=== PATIENT | female | born 1985 | race Two or more races ===

== ENCOUNTER 2020-09-19 14:58 | Outpatient (REF) | payer OTHER, SELFPAY ==
[2020-09-19 17:26] LABS: Syphilis Screen Nonreactive (Nonreactive)
[2020-09-20 12:26] LABS: BV Int Neg Control Negative (Negative); BV Int Pos Control Positive (Positive)
[2020-09-20 15:37] LABS: C. trachomatis RNA TMA NOT DETECTED (NOT DETECTED); N. gonorrhoeae RNA TMA DETECTED (NOT DETECTED)
[2020-09-22 08:23] LABS: HIV AB/AG Nonreactive (Nonreactive); HIV Num 1 0.06 S/CO (0.00-0.99)
[2020-09-22 09:07] LABS: HBc Num1 0.09 S/CO (0.00-0.79); Hepatitis B Core Antibody Nonreactive (Nonreactive); ~HepC Num1 0.09 S/CO (0.00-0.79); ~Hepatitis C Antibody Nonreactive (Nonreactive)
== END 2020-09-19 14:59 | disposition home or self-care (01) ==
LOC: HO.LAB 14:58
PROVIDERS: PCP Internal Medicine; Visit Provider Advanced Practice Midwife
DX: Z20.2 Contact with and (suspected) exposure to infections with a predominantly sexual mode of transmission (principal)
CPT/HCPCS: 36415; 86704; 86780; 86803; 87389; 87480; 87491; 87510; 87591; 87660; 99212

== ENCOUNTER → 2020-10-03 12:46 | Outpatient (BNVA) | payer OTHER, SELFPAY | PROVIDERS: PCP Internal Medicine; Visit Provider Advanced Practice Midwife | DX: A54.9 Gonococcal infection, unspecified (principal) | CPT/HCPCS: 96372; J0696 ==

== ENCOUNTER 2021-04-13 14:13 | Outpatient (REF) | payer OTHER, SELFPAY ==
--- NOTE | ~2021-04-13 | XR_ITS ---
EXAMINATION: XR SACROILIAC JOINTS CLINICAL INFORMATION: Sacrococcygeal disorder is. COMPARISON: None TECHNIQUE: 3 views of the sacroiliac joints FINDINGS: Bones and soft tissues are normal. No fracture. Alignment is anatomic. Sacroiliac joint spaces are well-maintained without erosions or surrounding sclerosis. XR/XR sacroiliac joint min 3V IMPRESSION: Unremarkable SI joints. Unremarkable sacrum.
== END 2021-04-13 14:14 | disposition home or self-care (01) ==
LOC: HO.XRAY 14:13
PROVIDERS: PCP Internal Medicine; Visit Provider Internal Medicine
DX: M53.3 Sacrococcygeal disorders, not elsewhere classified (principal)
CPT/HCPCS: 72202

== ENCOUNTER 2021-05-19 07:00 | Outpatient (RCR) | payer OTHER, SELFPAY | END 2021-09-21 09:41 | disposition home or self-care (01) | LOC: HO.PTWFD 07:00 | PROVIDERS: PCP Internal Medicine; Visit Provider Internal Medicine | DX: M53.3 Sacrococcygeal disorders, not elsewhere classified (principal) | CPT/HCPCS: 97110; 97140; 97162; 97535 ==

== ENCOUNTER 2021-12-02 15:14 | Outpatient (REF) | payer OTHER, SELFPAY ==
--- NOTE | ~2021-12-02 | XR_ITS ---
EXAMINATION: XR THORACIC SPINE CLINICAL INFORMATION: Dorsalgia. COMPARISON: Radiographs dated 01/02/2015. TECHNIQUE: AP, lateral and swimmer's views of the thoracic spine were obtained. FINDINGS: There is no fracture or bone destruction seen and the vertebral alignment is normal. There is no disc space narrowing. There is no abnormality of the paraspinal soft tissues. XR/XR lumbar spine 2-3V IMPRESSION: Unremarkable examination. EXAMINATION: XR LUMBOSACRAL SPINE CLINICAL INFORMATION: Back pain. COMPARISON: Radiographs dated 12/13/2014. TECHNIQUE: Three views of the lumbosacral spine. FINDINGS: The vertebral bodies and posterior elements are normal. The disc spaces are preserved, and the vertebral alignment is normal. There is very mild anterior spondylosis of the L3 upper and lower endplates. The paraspinal soft tissues are normal. IMPRESSION: 1. No acute fracture or spondylolisthesis is seen. 2. The lumbar disc spaces are well-maintained. 3. There is very mild anterior spondylosis of the L3 upper and lower endplates.
--- NOTE | ~2021-12-02 | XR_ITS ---
EXAMINATION: XR THORACIC SPINE CLINICAL INFORMATION: Dorsalgia. COMPARISON: Radiographs dated 01/02/2015. TECHNIQUE: AP, lateral and swimmer's views of the thoracic spine were obtained. FINDINGS: There is no fracture or bone destruction seen and the vertebral alignment is normal. There is no disc space narrowing. There is no abnormality of the paraspinal soft tissues. XR/XR thoracic spine 3V IMPRESSION: Unremarkable examination. EXAMINATION: XR LUMBOSACRAL SPINE CLINICAL INFORMATION: Back pain. COMPARISON: Radiographs dated 12/13/2014. TECHNIQUE: Three views of the lumbosacral spine. FINDINGS: The vertebral bodies and posterior elements are normal. The disc spaces are preserved, and the vertebral alignment is normal. There is very mild anterior spondylosis of the L3 upper and lower endplates. The paraspinal soft tissues are normal. IMPRESSION: 1. No acute fracture or spondylolisthesis is seen. 2. The lumbar disc spaces are well-maintained. 3. There is very mild anterior spondylosis of the L3 upper and lower endplates.
== END 2021-12-02 15:15 | disposition home or self-care (01) ==
LOC: HO.XRAY 15:14
PROVIDERS: PCP Internal Medicine; Visit Provider Nurse Practitioner Family
DX: M54.9 Dorsalgia, unspecified (principal); M25.562 Pain in left knee
CPT/HCPCS: 72072; 72100

== ENCOUNTER 2021-12-30 09:00 | Outpatient (RCR) | payer OTHER, SELFPAY ==
--- NOTE | 2021-12-25 11:38 | MHC.PT.EP ---
[facility] [place] Office [place] Office [place] Office [address] Enrico Mariano [address] [phone] F: [phone] F: [phone] F: [phone] F: [phone] Physical Therapy Plan of Care Date of Evaluation: Date of Surgery: Diagnosis: This is a 36 yo female presenting to skilled PT with a script for dorsalgia Assessment: This is a 36 yo female presenting to skilled PT with a script for dorsalgia. Pain stated after she reported a fall last year when a lawn chair collapsed. She went to PT but could not do more than 2-3 sessions due to work, pain started to get worse again. She was also referred pain management and has an appointment next week. Pain is located centralized lumbar region and into sacrum. There is no position that relieves this but she does feel better with movement. Denies leg symptoms, changes to bowel or bladder or radiating symptoms. The last time she had PT was about a year ago. Patient reports that she also has upper back pain that is chronic (had PT that was helpful). Assessment reveals pain that ranges up to a 10/10. She demos decreased lumbar and hip ROM, decreased core, hip and back strength, impaired joint mobility, s/s consistent with some SIJ involvement from the fall as well as gross functional decline with sitting and laying on her back. I educated her on x-ray results and treatment for SIJ and lumbar spondylosis at this time. She is a good candidate for skilled PT 2x/wk for 5wks. Frequency and Duration: The patient will be seen 2x/wk for 5wks Short Term Goals: I in HEP Tolerate sleeping on her L side without waking from pain Demo proper core stab, proper hip hinge and squat techniques without cues from PT [facility] Goals: Demos functional ROM and strength Improve oswestry by at least 10 points Improve pain at the worst to no more than 2/10 Demo proper lifting techniques without increase in pain or radiating symptoms Treatment Plan: Modalities to reduce pain, spasms and effusion. Manual therapy to restore motion and function. Therapeutic exercise to improve strength and flexibility. Neuromuscular re-education for posture and balance. Therapeutic activities to return to functional activities of daily living. Electronically signed by: Miriam Cole PT Please sign and return to therapist. Thank you for your referral.
--- NOTE | 2022-01-28 07:51 | MHC.PT.DC ---
[facility] [place] Office [place] Office [place] Office [address] Enrico Mariano [address] [phone] F: [phone] F: [phone] F: [phone] F: [phone] Physical Therapy Discharge Report Diagnosis: This is a 36 yo female presenting to skilled PT with a script for dorsalgia Date of Surgery: Date of Evaluation: 12/25/21 Date of Discharge: 01/28/22 Treatments to Date: 2 Cancellations to Date: 0 No Shows to Date: 0 Discharge Status: Patient Elected to Stop Visit Non-compliance Discharge Summary: Pedro came to eval and one follow up. At the follow up she did not have any increase in pain throughout the session. I updated her HEP accordingly. She appeared equal in ASIS and LL today so held manual. She was 15 mins late to that session and I planned to progress to wall squats, glut med work in standing however patient had a family emergercy and cancelled the next two appointments. The javascript front end developer attempted to call her and left her a message about her appointments and did not hear back. I kept her chart open for 30 days and then DC'd to HEP. Electronically signed by: Miriam Cole PT Please sign and return to therapist. Thank you for your referral.
== END 2022-01-28 07:51 | disposition home or self-care (01) ==
LOC: HO.PTCHIC 09:00
PROVIDERS: PCP Internal Medicine; Visit Provider Nurse Practitioner Family
DX: M54.9 Dorsalgia, unspecified (principal)
CPT/HCPCS: 97110; 97161

== ENCOUNTER → 2022-01-08 09:03 | Outpatient (BNVA) | payer OTHER, SELFPAY | PROVIDERS: PCP Internal Medicine; Visit Provider Nurse Practitioner Family | DX: M62.838 Other muscle spasm (principal); M53.3 Sacrococcygeal disorders, not elsewhere classified; M47.816 Spondylosis without myelopathy or radiculopathy, lumbar region | CPT/HCPCS: 99202 ==

== ENCOUNTER 2024-09-12 13:55 | Outpatient (AMB) | payer OTHER, SELFPAY ==
--- NOTE | 2024-09-12 13:59 | MHC.PC.OV ---
Vital Signs 09/12/24 14:00 Height 5 ft 5 in Weight 246 lb BMI 40.9 BP 110/78 Blood Pressure Location Lt brachial Position Sitting Intake Visit Reasons: annual exam Intake Note: Patient here for a physical exam Head Of [employer] Required: No Accompanied by: Self / Same As Patient Allergies No Known Allergies Allergy (Verified 09/12/24 14:08) Medication List - Last Reconciled 09/12/24 by Laurie Claire MD cyclobenzaprine 10 mg PO BEDTIME PRN 30 days fluocinonide 0.05% 1 appl topical BID 14 days Tobacco use date assessed: 09/12/24 Dental Screening Dental Screen Date: 09/12/24 Did you have a dental visit in the last 12 months?: No Did you have a dental problem in the last 6 months where you did not have access to dental care?: No Was dental information given to patient?: Patient has dentist HPI HPI Comments History of Present Illness Details This is a 39-year-old female that comes for her physical exam. Will order mammogram that has never been done. Pap smear was about 4 years ago and it was normal. Colonoscopy done 2014 due to family history of colon polyps and I will refer her to Gastroenterology for evaluation for colonoscopy. She is morbidly obese with a BMI of 40.9 and has tried diet and exercise with no significant improvement. I will start her on Zepbound if insurance approves. She also complains of sore throat that started yesterday with no fever or cough. Strep test was positive. Will send antibiotics. She has mild depression with a PHQ-9 of 3 and is able to control it by herself with no need for medication or counseling. She declines bariatric surgery for her morbid obesity. [facility] Medical History (Updated 09/12/24 @ 14:36 by Laurie Claire MD) Physical exam EDENILSON (generalized anxiety disorder) Mild depression Eczema Coccyalgia Body mass index [BMI] 38.0-38.9, adult Gonorrhea Migraines Eczema Tachycardia [facility] History History of endometrial ablation Hx of tubal ligation Hx of dilation and curettage Family History Father Hypertension Mother Colon polyps Social History Housing: Apartment Alcohol intake: current Alcohol intake frequency: a few times a week Alcohol type: wine Patient Tobacco Use Status: Never used Tobacco e-Cigarette/Vaping Use: Never Used Second Hand Smoke Exposure: No service: No Current occupational status: employed Current occupational exposures/hazards: No Sexual orientation: Straight/Heterosexual Cognitive needs: No Hearing needs: No Vision needs: No Questionnaire PHQ-9 Over the last 2 weeks, how often have you been bothered by any of the following problems? 1. Little interest or pleasure in doing things: not at all 2. Feeling down, depressed, or hopeless: not at all 3. Trouble falling or staying asleep, or sleeping too much: several days 4. Feeling tired or having little energy: several days 5. Poor appetite or overeating: not at all 6. Feeling bad about yourself - or that you are a failure or have let yourself or your family down: not at all 7. Trouble concentrating on things, such as reading the newspaper or watching television: several days 8. Moving or speaking so slowly that other people could have noticed. Or the opposite - being so fidgety or restless that you have been moving around a lot more than usual: not at all 9. Thoughts that you would be better off or of hurting yourself in some way: not at all Total score: 3 Depression Screening Interpretation: Positive Depression Screening Follow-up: Existing condition and Follow-up Visit Requested Depression Screening Done: Yes 71561 - PHQ-9 Billing: Yes Source: Developed by Drs. Devon Whitman, Carmen Mac, Kahlil Joel and colleagues, with an educational gian from [employer]. Thrive Questionnaire Date Thrive assessed: 09/12/24 I am a: Patient What is your living situation today?: I have a steady place to live Within the past 12 months, did the food you bought not last and you didn't have the money to get more?: Never true Within the past 12 months, did you worry whether your food would run out before you got money to buy more?: Never true Do you have trouble paying for medicines?: No Do you have trouble getting transportation to medical appointments?: No Do you have trouble paying your heating and electricity bill?: No Do you have trouble taking care of your child, family member or friend?: No Do you have trouble with day-to-day activities such as bathing, preparing meals, shopping, managing finances, etc.?: No Are you currently unemployed and looking for a job?: No Are you interested in more education?: No Please select the resources that you would like help with: None Currently or been in a relationship where the following occur: No concerns reported THRIVE Score: 0 AUDIT C Alcohol Use Questionnaire (AUDIT-C) 1. How often do you have a drink containing alcohol?: 2-3 times a week 2. How many drinks containing alcohol do you have on a typical day when you are drinking?: 1 or 2 3. How often do you have six or more drinks on one occasion?: Never Total Score: 3 Score Reviewed/Action Taken: No EDENILSON-7 AMB Questionnaire EDENILSON-7 Date EDENILSON - 7 assessed: 09/12/24 Feeling nervous, anxious, or on edge: 1 = Several days Not being able to stop or control worryin = Several days Worrying too much about different things: 1 = Several days Trouble relaxin = Several days Being so restless that it is hard to sit still: 2 = More than half the days Becoming easily annoyed or irritable: 1 = Several days Feeling afraid as if something awful might happen: 0 = Not at all Total EDENILSON-7 score (0-4 normal; 5-9 mild; 10-14 moderate; 15-21 severe): 7 Source: Developed by Drs. Devno Whitman, Carmen Mac, Kahlil Joel and colleagues, with an educational gian from [employer]. EDENILSON-7 Assessment Billing EDENILSON-7 Assessment Tool: EDENILSON-7 Assessment 28860 Review of Systems Const All systems reviewed & are unremarkable except as noted in HPI and below ENT Reports sore throat Card Denies chest pain at rest, Denies chest pain with activity, Denies edema, Denies irregular heart rhythm, Denies claudication, Denies dyspnea, Denies dyspnea on exertion, Denies orthopnea, Denies paroxysmal nocturnal dyspnea and Denies slow heart rate Resp Denies cough, Denies dyspnea and Denies dyspnea on exertion Physical exam (Primary Care) Vital Signs: Last Vital Signs BP 110/78 09/12/24 14:00 BMI result Body Mass Index 40.9 BMI Assessment/Plan discussion: High BMI High, discussed plan: lifestyle, weight reduction, dietary and physical activity Tobacco/Smoking Status: Tobacco use Status Tobacco use date assessed 09/12/24 09/12/24 14:06 Patient Tobacco Use Status Never used Tobacco 09/12/24 14:06 e-Cigarette/Vaping Use Never Used 09/12/24 14:06 PHQ-9: PHQ-9 Score PHQ-9: Total score 3 09/12/24 14:14 Depression Screening Interpretation: Positive Depression Screening Follow-up: Existing condition and Follow-up Visit Requested Thrive Assessment: Date of Thrive Assessment Date Thrive assessed 09/12/24 09/12/24 14:06 Currently or been in a relationship where the following occur: No concerns reported [facility] Head: Yes normal to inspection, Yes normocephalic and Yes atraumatic Ears: external ears normal General nose exam: Normal external nose present and No nasal discharge present Face and sinus: Yes sinuses nontender Mouth: lip normal Eyes General: appearance normal, both eyes and all related structures Eyelids: Yes eyelids normal Conjunctivae: conjunctivae normal Neck Neck: Yes normal visual inspection and Yes supple Resp Effort & Inspection: normal respiratory effort Auscultation: clear to auscultation bilaterally Cardio Jugular venous distension: no JVD Rate: regular rate Rhythm: regular rhythm Heart sounds: S1 normal heart sound present and S2 normal heart sound present GI Inspection: Yes normal to inspection Palpation (GI): Soft to palpation and nontender Auscultation: normal bowel sounds Skin General skin exam: no rashes or lesions noted Neuro General: no focal motor deficits Extrem General: Yes full ROM Psych Appearance: grossly normal Results AMB Rapid Strep AMB Rapid Strep Positive Last Edit by BRIAN Matta on 09/12/24 14:34 Coding Level of Care Code Est Pt Level 3 (81184) Est Pt Prev Care 40-64y(03733) Diagnoses Physical exam Z00.00 Morbid obesity with BMI of 40.0-44.9, adult E66.01; Z68.41 Strep throat J02.0 Mild depression F32.0 Additional Codes PHQ-9 - 29394 - PHQ-9 Billing: Yes ([id number]) EDENILSON-7 Assessment Billing - EDENILSON-7 Assessment Tool: EDENILSON-7 Assessment 53083 ([id number]) Time Spent (min) 33 Assessment & Plan Assessment & Plan (1) Physical exam: Code(s): Z00.00 - Encounter for general adult medical examination without abnormal findings Category: Medical (2) Morbid obesity with BMI of 40.0-44.9, adult: Code(s): E66.01 - Morbid (severe) obesity due to excess calories; Z68.41 - Body mass index [BMI] 40.0-44.9, adult Category: Medical (3) Strep throat: Code(s): J02.0 - Streptococcal pharyngitis Category: Medical (4) Mild depression: Code(s): F32.0 - Major depressive disorder, single episode, mild Category: Medical Plan Repeat physical exam in a year. For her strep throat antibiotic was sent. Mild depression no need for counseling or medication. Zepbound sent for morbid obesity. Orders: Orders Comprehensive [place]. Panel Fast Today E66.01 - Morbid (severe) obesity due to excess calories, Z68.41 - Body mass index [BMI] 40.0-44.9, adult Thyroid Stimulating Hormone Today E66.01 - Morbid (severe) obesity due to excess calories, Z68.41 - Body mass index [BMI] 40.0-44.9, adult Complete Blood Count Auto Diff Today E66.01 - Morbid (severe) obesity due to excess calories, Z68.41 - Body mass index [BMI] 40.0-44.9, adult AMB Rapid Strep Screen Today Z13.9 - Encounter for screening, unspecified MM tomosynthesis screening BI Today Z12.31 - Encounter for screening mammogram for malignant neoplasm of breast Lipid Panel Today E66.01 - Morbid (severe) obesity due to excess calories, Z68.41 - Body mass index [BMI] 40.0-44.9, adult Referrals Gastroenterology Referral Z12.11 - Encounter for screening for malignant neoplasm of colon Medications: New tirzepatide (weight loss) (Zepbound) for 4 weeks 2.5 mg (0.5 mL) subcut QWEEK 4 weeks 2 mL 0RF E66.01 - Morbid (severe) obesity due to excess calories, Z68.41 - Body mass index [BMI] 40.0-44.9, adult amoxicillin-pot clavulanate 875-125 mg 1 tab PO BID 7 days 14 tabs 0RF J02.0 - Streptococcal pharyngitis
[2024-09-12 14:00] VITALS: BP 110/78; BMI 40.9
== END 2024-09-12 14:34 | disposition home or self-care (01) ==
PROVIDERS: PCP Internal Medicine; Visit Provider Internal Medicine
DX: Z00.00 Encounter for general adult medical examination without abnormal findings (principal); J02.0 Streptococcal pharyngitis; F32.0 Major depressive disorder, single episode, mild; E66.01 Morbid (severe) obesity due to excess calories; Z68.41 Body mass index [BMI] 40.0-44.9, adult

== ENCOUNTER → 2024-09-12 13:55 | Outpatient (BNVA) | payer OTHER, SELFPAY | PROVIDERS: PCP Internal Medicine; Visit Provider Internal Medicine | DX: Z00.00 Encounter for general adult medical examination without abnormal findings (principal); E66.01 Morbid (severe) obesity due to excess calories; Z68.41 Body mass index [BMI] 40.0-44.9, adult; J02.0 Streptococcal pharyngitis; F32.0 Major depressive disorder, single episode, mild | CPT/HCPCS: 87880; 96127 ==

== ENCOUNTER 2024-09-28 15:31 | Outpatient (REF) | payer OTHER, SELFPAY ==
--- OUTSIDE RECORDS SUMMARY | 2024-09-28 16:32 | XMS_ITS | Clinical Summary ---
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 Role Phone Unavailable Primary Care Provider Unavailabl e Social History Tobacco Use Types Packs/Day Years Used Date Smoking Tobacco: Never Assessed Sex and Gender Information Value Date Recorded Sex Assigned at Not on file Gender Identity Not on file Sexual Orientation Not on file Plan of Treatment Health Maintenance Due Date Last Done Comments Breast Cancer Screening 1984 DTaP,Tdap,and Td Vaccines (1 - Tdap) 2003 Hepatitis B Vaccines (1 of 3 - 19+ 3-dose series) 2003 Cervical Cancer Screening: P ap Smear 2005 COVID-19 Vaccine (2023-2 5 season) 2024 Influenza Vaccine (#1) 2024 HIB Vaccines Aged Out No longer eligi ble based on patient's age to complete this topic HPV Vaccines Aged Out No longer eligi ble based on patient's age to complete this topic Hepatitis A Vaccines Aged Out No long er eligible based on patient's age to complete this topic IPV Vaccines Aged Out No longer eligi ble based on patient's age to complete this topic MMR Vaccines Aged Out No longer eligi ble based on patient's age to complete this topic Meningococcal ACWY Vaccine Aged Out N o longer eligible based on patient's age to complete this topic Pneumococcal Vaccine: Pediat rics (0 to 5 Years) and At-Risk Patients (6 to 64 Years) Aged Out No longer eligible b ased on patient's age to complete this topic RSV Immunization Patients Un jenni 20 months Aged Out No longer eligible b ased on patient's age to complete this topic Varicella Vaccines Aged Out No longer eligible based on patient's age to complete this topic
== END 2024-09-28 15:32 | disposition home or self-care (01) ==
LOC: HO.MAMMO 15:31
PROVIDERS: PCP Internal Medicine; Visit Provider Internal Medicine
DX: Z12.31 Encounter for screening mammogram for malignant neoplasm of breast (principal)
CPT/HCPCS: 77063; 77067

== ENCOUNTER → 2024-09-28 15:45 | Outpatient (BNV) | payer OTHER, SELFPAY | PROVIDERS: PCP Internal Medicine; Visit Provider Internal Medicine | DX: Z12.31 Encounter for screening mammogram for malignant neoplasm of breast (principal) | CPT/HCPCS: 77063; 77067 ==

== ENCOUNTER 2024-12-31 12:56 | Outpatient (REF) | payer OTHER, SELFPAY ==
--- NOTE | ~2024-12-31 | US_ITS ---
EXAMINATION: US DIAGNOSTIC ULTRASOUND BREAST, LEFT CLINICAL INFORMATION: Back from screening for left axillary calcified lymph nodes.. She has a left arm target 2. COMPARISON: Comparison is made with relevant prior imaging. TECHNIQUE: Ultrasound of the breast is performed with real-time pena scale imaging and color Doppler. FINDINGS: Targeted color Doppler ultrasound scanning in the left axilla demonstrates multiple normal-appearing axillary lymph nodes. There is no sonographic abnormality. Results are discussed with the patient at time of visit. US/US breast LT limited mamm only IMPRESSION: Left calcified axillary lymph nodes which could be accounted for by the patient's left arm tattoo. However this is was the patient's baseline mammogram and therefore 6 month follow-up left breast mammography is recommended for further evaluation of stability. ASSESSMENT: BI-RADS 3: Probably Benign RECOMMENDATION: Diagnostic mammography in 6 months. This patient's information was entered into a reminder system with a target due date for their next mammogram. Electronically signed by: Jannette Minaya DO 12/31/2024 02:51 PM EDT
--- OUTSIDE RECORDS SUMMARY | 2024-12-31 15:22 | XMS_ITS | Clinical Summary ---
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 Phone Unavailable Primary Care Provider Unavailabl e Social History Tobacco Use Types Packs/Day Years Used Date Smoking Tobacco: Never Assessed Comments Unknown Sex and Gender Information Value Date Recorded Sex Assigned at Not on file Legal Sex Female 5:36 AM EST Gender Identity Not on file Sexual Orientation Not on file Plan of Treatment Health Maintenance Due Date Last Done Comments Breast Cancer Screening 1984 DTaP,Tdap,and Td Vaccines (1 - Tdap) 2003 Hepatitis B Vaccines (1 of 3 - 19+ 3-dose series) 2003 Cervical Cancer Screening: P ap Smear 2005 COVID-19 Vaccine (2023-2 5 season) 2024 Influenza Vaccine (Season Ended) 2025 HIB Vaccines Aged Out No longer eligi [...] patient's age to complete this topic Meningococcal B Vaccine Aged Out No l onger eligible based on patient's age to complete [...]
== END 2024-12-31 12:57 | disposition home or self-care (01) ==
LOC: HO.MAMMO 12:56
PROVIDERS: PCP Internal Medicine; Visit Provider Internal Medicine
DX: N63.32 Unspecified lump in axillary tail of the left breast (principal)
CPT/HCPCS: 76642

== ENCOUNTER → 2024-12-31 13:00 | Outpatient (BNV) | payer OTHER, SELFPAY | PROVIDERS: PCP Internal Medicine; Visit Provider Internal Medicine | DX: R92.8 Other abnormal and inconclusive findings on diagnostic imaging of breast (principal) | CPT/HCPCS: 76642 ==

== ENCOUNTER 2025-07-12 16:33 | Outpatient (AMB) | payer OTHER, SELFPAY ==
[2025-07-12 16:46] VITALS: BP 122/70; PULSE 72; RESP 18; BMI 41.3
--- NOTE | 2025-07-12 16:46 | MHC.PC.OV ---
Vital Signs 07/12/25 16:46 Height 5 ft 5 in Weight 248 lb 6 oz BMI 41.3 BP 122/70 Blood Pressure Location Lt brachial Position Sitting Respiration 18 Pulse 72 Pulse Source Pulse Oximeter Temp Source Temporal Artery Scan Oxygen Delivery Method Room Air Intake Visit Reasons: migraines Photoresist Contact Printer Required: No Accompanied by: Self / Same As Patient Allergies No Known Allergies Allergy (Verified 07/12/25 16:46) Medication List - Last Reconciled 07/12/25 by Aleksey Jerez MD cyclobenzaprine 10 mg PO BEDTIME PRN 30 days fluocinonide 0.05% 1 appl topical BID 14 days Tobacco use date assessed: 07/12/25 Dental Screening Dental Screen Date: 07/12/25 Did you have a dental visit in the last 12 months?: No Did you have a dental problem in the last 6 months where you did not have access to dental care?: No Was dental information given to patient?: No HPI HPI Comments History of Present Illness Details The patient is a 40-year-old female presenting with worsening migraines. She has a long-standing history of migraines and previously sought treatment in the emergency room for them in her early 20s. Recently, the migraines have been followed by a persistent headache lasting up to two weeks. She uses Excedrin for her migraines, but reports it is not very effective. She identifies cheese as a potential trigger. The patient's current medications include Flexeril taken as needed every few months for unbearable pain and a cream for eczema used throughout the month. She was considered for Zepbound for weight loss, but did not start the medication due to a prior authorization issue. She has previously seen a weight loss specialist and notes her eating pattern consists of skipping breakfast and lunch. [facility] Medical History (Updated 07/12/25 @ 17:17 by Aleksey Jerez MD) Physical exam EDENILSON (generalized anxiety disorder) Mild depression Eczema Coccyalgia Body mass index [BMI] 38.0-38.9, adult Gonorrhea Migraines Eczema Tachycardia Spur eye Surgical History History of endometrial ablation Hx of tubal ligation Hx of dilation and curettage Family History Father Hypertension Mother Colon polyps Social History Housing: Apartment Alcohol intake: current Alcohol intake frequency: a few times a week Alcohol type: wine Patient Tobacco Use Status: Never used Tobacco e-Cigarette/Vaping Use: Never Used Second Hand Smoke Exposure: No service: No Current occupational status: employed Current occupational exposures/hazards: No Sexual orientation: Straight/Heterosexual Cognitive needs: No Hearing needs: No Vision needs: No Questionnaire Thrive Questionnaire Date Thrive assessed: 09/12/24 I am a: Patient What is your living situation today?: I have a steady place to live Within the past 12 months, did the food you bought not last and you didn't have the money to get more?: Never true Within the past 12 months, did you worry whether your food would run out before you got money to buy more?: Never true Do you have trouble paying for medicines?: No Do you have trouble getting transportation to medical appointments?: No Do you have trouble paying your heating and electricity bill?: No Do you have trouble taking care of your child, family member or friend?: No Do you have trouble with day-to-day activities such as bathing, preparing meals, shopping, managing finances, etc.?: No Are you currently unemployed and looking for a job?: No Are you interested in more education?: No Please select the resources that you would like help with: None Currently or been in a relationship where the following occur: No concerns reported THRIVE Score: 0 EDENILSON-7 AMB Questionnaire EDENILSON-7 Date EDENILSON - 7 assessed: 09/12/24 Source: Developed by Drs. Devon Whitman, Carmen Mac, Kahlil Joel and colleagues, with an educational gian from [email or web address]. Review of Systems Const Details: As per HPI Physical exam (Primary Care) Vital Signs: Last Vital Signs Pulse 72 07/12/25 16:46 Resp 18 07/12/25 16:46 BP 122/70 07/12/25 16:46 Oxygen Delivery Method Room Air 07/12/25 16:46 BMI result Body Mass Index 41.3 Tobacco/Smoking Status: Tobacco use Status Tobacco use date assessed 07/12/25 07/12/25 16:53 Patient Tobacco Use Status Never used Tobacco 07/12/25 16:53 e-Cigarette/Vaping Use Never Used 07/12/25 16:53 Thrive Assessment: Date of Thrive Assessment Date Thrive assessed 09/12/24 07/12/25 16:53 Currently or been in a relationship where the following occur: No concerns reported Const Other: Pertinent findings are in BOLD GENERAL APPEARANCE NAD, activity normal for age, well developed/ well nourished, no cyanosis, pallor, or diaphoresis. EYES lids/conjunctiva normal. EARS/NOSE/THROAT Mucous membranes moist, nares normal, lips/teeth normal uvula midline without oral pharyngeal erythema, exudate or swelling TMs normal bilaterally. No lymphangitis/lymphedema. HEAD/NECK normocephalic atraumatic, no facial trauma, neck is supple. RESPIRATORY respiratory effort normal, speaks in full sentences, no tripod position, no accessory muscle use. Lungs clear to auscultation without rhonchi, wheezes, rales CARDIAC Regular rate and rhythm, no edema. ABDOMINAL Soft, ND/NT. No evidence of fluid wave. No pulsatile masses on exam, rebound tenderness, Tariq sign or pain over Mcburney's point. MUSCLES/EXTREMITIES No abnormal range of motion, no swelling. SKIN Warm, pink and dry. No rashes, dermatoses, petechiae or lesions. NEUROLOGICAL Speech is clear and appropriate. Normal level of consciousness. Gait and coordination are normal. 5/5 strength in all extremities. PSYCH Normal mood and affect. Judgement/competence is appropriate Coding Level of Care Code Est Pt Level 4 (63121) Diagnoses Intractable migraine without status migrainosus, unspecified migraine type G43.919 Migraine type: unspecified Status migrainosus presence: without status migrainosus Intractability: intractable Class 3 severe obesity due to excess calories with body mass index (BMI) of 40.0 to 44.9 in adult, unspecified whether serious comorbidity present E66.01; Z68.41; Z68.41 Obesity type: due to excess calories Obesity classification: adult class 3 (BMI >= 40) Serious obesity comorbidity presence: unspecified whether serious comorbidity present Body mass index: BMI 40.0-44.9 Time Spent (min) 30 Assessment & Plan Assessment & Plan (1) Migraines: Code(s): G43.909 - Migraine, unspecified, not intractable, without status migrainosus Category: Medical Qualifiers: Migraine type: unspecified Status migrainosus presence: without status migrainosus Intractability: intractable Qualified Code(s): G43.919 - Migraine, unspecified, intractable, without status migrainosus Plan: - The patient presents with worsening migraines, which are now followed by a prolonged headache lasting up to two weeks. - OTC Excedrin provides minimal relief. - A potential trigger identified is cheese. - A referral will be sent to Neurology for specialist evaluation and management. - Counseled the patient on the importance of identifying and avoiding dietary triggers. - Recommended a two-week trial of eliminating dairy to assess its impact on migraine frequency and severity. (2) Obesity: Code(s): E66.9 - Obesity, unspecified Category: Medical Qualifiers: Obesity type: due to excess calories Obesity classification: adult class 3 (BMI >= 40) Serious obesity comorbidity presence: unspecified whether serious comorbidity present Body mass index: BMI 40.0-44.9 Qualified Code(s): E66.01 - Morbid (severe) obesity due to excess calories; Z68.41 - Body mass index [BMI] 40.0-44.9, adult; Z68.41 - Body mass index [BMI] 40.0-44.9, adult Plan: - The patient has a goal of losing weight and was previously considered for Zepbound. - Patient's diet and irregular eating patterns, such as skipping meals, were discussed as contributing factors. - Provided extensive counseling on dietary modifications, focusing on the elimination of certain food groups rather than calorie restriction. - Recommended eliminating dairy, red meat, gluten, and sugar. - Advised a trial elimination of one food group at a time to identify the one that her body may be storing more readily. Plan I addressed the patient's primary concern of worsening migraines, which now have a prolonged postdromal phase of up to two weeks. Given the severity and duration, I explained that a referral to a neurology specialist is the best course of action for advanced management. I emphasized that in the meantime, focusing on prevention through lifestyle changes could be highly beneficial. We discussed identifying and avoiding potential triggers, noting her consumption of cheese. I also connected this dietary approach to her goal of weight loss. I advised a [id number] approach, suggesting she eliminate specific food categories from her diet?specifically dairy, sugar, red meat, and gluten?to see how her body responds. I recommended starting with a two-week elimination of dairy products to assess for improvement in both her migraines and weight. The patient was agreeable to the plan and I confirmed that the neurology referral would be sent. Orders: Referrals Neurology Referral G43.909 - Migraine, unspecified, not intractable, without status migrainosus
--- OUTSIDE RECORDS SUMMARY | 2025-07-12 16:53 | XMS_ITS | Clinical Summary ---
Author Organization [facility] it Address [id number] [place] [address] Care Team Providers Care Floor Installation Mechanic Name Role Phone Unavailable Primary Care [...] Cervical Cancer Screening: P ap Smear 2005 HPV Vaccines (1 - 3-dose SCD M series) 2011 Depression Screening 09/05/2024 COVID-19 Vaccine ( - 2023-2 5 season) 2025 Influenza Vaccine (#1) 2025 RSV Immunization Adult Patie nts (1 - 1-dose 75+ series) 2059 HIB Vaccines Aged Out No longer eligi [...] 5 Years) and At-Risk Patients (6 to 49 Years) Aged Out No longer eligible b ased on patient's age to complete this topic RSV Immunization Patients Un jenni 20 months Aged Out No longer eligible b ased on patient's age to complete this topic Varicella Vaccines Aged Out No longer eligible based on patient's age to complete this topic
== END 2025-07-12 17:17 | disposition home or self-care (01) ==
LOC: HO.HMCH 16:34
PROVIDERS: Visit Provider Internal Medicine
DX: G43.919 Migraine, unspecified, intractable, without status migrainosus (principal); E66.01 Morbid (severe) obesity due to excess calories; Z68.41 Body mass index [BMI] 40.0-44.9, adult